=== PATIENT | male | born 1995 | race Two or more races ===

== ENCOUNTER 2019-04-27 23:43 | Emergency (ER) | payer MEDICAID ==
[~2019-04-27] VITALS: Ht 182.9 cm; Wt 110.2 kg
--- NOTE | 2019-04-28 00:10 | NUR ---
ED Nurse Note: Patient sustained wound to the ring finger of the left hand- laceration sustained no active bleed.
[2019-04-28] MEDS ORDERED: Tetanus/Diptheria/Pertussis IM ONE (00:15)
[2019-04-28] MEDS ORDERED: Neosporin Oint Ud Pkt TOPIC ONE (00:45)
--- NOTE | 2019-04-28 00:53 | Emergency Room Report ---
History of Present Illness General Chief Complaint: Laceration Source: Patient Present Illness HPI This is a 24-year-old male who is right-hand dominant. He presents with chief complaint of laceration to right ring finger. This occurred about 5 to 6 hours prior to arrival. He and his brother working on a truck and was holding up to cabin. The jacks fell and they try to hold up and sustained a laceration. No other injury. Did not pass out. Denies any nausea or vomiting. Denies any active bleeding. Pain is minimal. Allergies: Coded Allergies: No Known Allergies (Unverified , 04/28/19) Patient History Past Medical History: see triage record, old chart reviewed Past Surgical History: none Pertinent Family History: none Social History: Reports: smoking Immunizations: other Reviewed Nursing Documentation: PMH: Agreed; PSxH: Agreed Nursing Documentation-PMH Past Medical History: No Stated History Review of Systems Eye: Denies: eye pain, blurred vision ENT: Denies: ear pain, nose congestion, throat swelling Respiratory: Denies: cough, shortness of breath Cardiovascular: Denies: chest pain, palpitations Gastrointestinal: Denies: abdominal pain, diarrhea, nausea, vomiting Musculoskeletal: Denies: back pain, joint pain Skin: Denies: rash Neurological: Denies: headache, numbness Endocrine: Denies: increased thirst, increased urine Hematologic/Lymphatic: Denies: easy bruising All Other Systems: negative except mentioned in HPI Physical Exam Vital Signs Date Time Temp Pulse Resp B/P (MAP) Pulse Ox O2 Delivery O2 Flow Rate FiO2 04/27/19 23:59 99.0 116 16 129/79 (96) 96 Room Air Vitals with tachycardia Sp02 EP Interpretation: reviewed, normal General Appearance: well appearing, no apparent distress, alert Head: normocephalic, atraumatic Eyes: bilateral eye PERRL, bilateral eye EOMI ENT: hearing grossly normal, normal pharynx Neck: full range of motion, supple, no meningismus Respiratory: chest non-tender, lungs clear, normal breath sounds Cardiovascular #1: regular rate, rhythm, no murmur Gastrointestinal: normal bowel sounds, non tender, no mass, no organomegaly, no bruit, non-distended Musculoskeletal: back normal, gait/station normal, normal range of motion, other - Ring finger: On the PIP joint on the volar aspect there is a 2 cm laceration. No foreign body. Full range of motion of the MCP, PIP, DIP joint. Sensation normal. Psychiatric: mood/affect normal Procedures Laceration/Wound Repair Laceration/Wound Repair : Consent: Verbal Wound Location: upper extremity Wound's Depth, Shape: linear, irregular, flap, contused tissue Wound Length (cm): 2 Wound Explored: clean Irrigated w/ Saline (ccs): 1000 Betadine Prep?: Yes Anesthesia: 1% Lidocaine Volume Anesthetic (ccs): 3 Wound Debrided: minimal Wound Repaired With: sutures Suture Size/Type: 5:0, proline Number of Sutures: 4 Splint Applied?: Yes Type of Splint Applied: Finger Patient Tolerated: Well Complications: None Medical Decision Making Diagnostic Impression: Primary Impression: Finger laceration Qualified Codes: S61.214A - Laceration without foreign body of right ring finger without damage to nail, initial encounter ER Course Patient presents with soft tissue injury. No tendon laceration or foreign body. Will discharge home. Low risk for infection. Last Vital Signs Date Time Temp Pulse Resp B/P (MAP) Pulse Ox O2 Delivery O2 Flow Rate FiO2 04/27/19 23:59 99.0 116 16 129/79 (96) 96 Room Air Status: improved Disposition: HOME, SELF-CARE Condition: Stable Patient Instructions: Laceration Care, Adult Additional Instructions: Keep wound clean. Clean with hydrogen peroxide first and then apply antibiotic ointment. Follow-up with your doctor in 7 days or return here for suture removal. Return if worse. Teodoro Kingston MD Apr 28, 2019 00:53
[2019-04-28 01:00] VITALS: BP 117/68
--- NOTE | 2019-04-28 01:05 | NUR ---
ER DISCHARGE NOTE: Patient is cleared to be discharged per ERMD, pt is aox4, on room air, with stable vital signs. pt was given dc instructions, pt was able to verbalize understanding, pt id band removed without complications. pt is able to ambulate with steady gait. pt took all belongings. Patient has a dressing insuti to the finger injury with neosporin as prescribed. Woound care advice provided. Discharge instructions. Uncomplaining of any pain at discharge.
== END 2019-04-28 01:03 | disposition home or self-care (01) ==
LOC: EMR 04-28 00:14
DX: S61.214A Laceration without foreign body of right ring finger without damage to nail, initial encounter (principal); Z23 Encounter for immunization; F17.200 Nicotine dependence, unspecified, uncomplicated; W45.8XXA Other foreign body or object entering through skin, initial encounter; Y93.89 Activity, other specified; Y92.9 Unspecified place or not applicable
CPT/HCPCS: 12001; 90471; 90715; Z7502; 99283